=== PATIENT | male | born 1955 | race Two or more races ===

== ENCOUNTER 2017-04-26 07:59 | Day surgery (SDC) | payer OTHER ==
[2017-04-25 13:15] VITALS: BMI 25.8
[~2017-04-26 07:59] MED LIST: BUPIVACAINE HCL/PF 0.5% (5MG/ML) 10 ML VIAL IJ ONE
[2017-04-26] MEDS ORDERED: MIDAZOLAM HCL 2 MG/2 ML SINGLE DOSE VIAL ONE (09:42)
[2017-04-26] MEDS ORDERED: ROCURONIUM BROMIDE 50 MG/5 ML VIAL ONE (09:42)
[2017-04-26] MEDS ORDERED: KETOROLAC TROMETHAMINE 30 MG/1 ML VIAL ONE (09:45)
[2017-04-26] MEDS ORDERED: DEXAMETHASONE SOD PHOSPHATE 4 MG/1 ML VIAL ONE (09:45)
[2017-04-26] MEDS ORDERED: ceFAZolin SODIUM 1 GM VIAL IVPB ONE (10:16)
[2017-04-26] MEDS ORDERED: BUPIVACAINE HCL/PF 0.5% (5MG/ML) 10 ML VIAL ONE ×2 (10:35→10:38)
[2017-04-26] MEDS ORDERED: NEOSTIGMINE METHYLSULFATE 0.5 MG/ML - 10 ML MDV ONE (11:09)
[2017-04-26] MEDS ORDERED: GLYCOPYRROLATE 0.2 MG/1 ML VIAL ONE (11:09)
[2017-04-26] MEDS ORDERED: LIDOCAINE HCL 2% (20ML MULTI-DOSE VIAL) NR ONE (11:36)
[2017-04-26] MEDS ORDERED: BUPIVACAINE HCL/PF 0.5% (5MG/ML) 10 ML VIAL IJ ONE (11:40)
--- NOTE | 2017-04-26 11:55 | HP ---
History & Physical Update - History History: No Change - Physical Physical: No Change - Assessment Assessment: No Change - Plan Plan: No Change
[2017-04-26] MEDS ORDERED: ONDANSETRON 4 MG/2 ML VIAL IVPUSH PRN (12:02)
[2017-04-26] MEDS ORDERED: oxyCODONE HCL 5 MG TABLET PO PRN (12:02)
--- NOTE | 2017-04-26 12:09 | OP ---
Operative Note - Note: Operative Date: 04/26/17 Pre-Operative Diagnosis: Incarcerated ventral hernia. Operation: Repair of incarcearted ventral hernia with mesh. Findings: Large 4 cm. diameter ventral hernia. Implants: Ventolex mesh 6.4 cm. diameter. Post-Operative Diagnosis: Same as Pre-op Surgeon: Josselyn Ravi Anesthesiologist/ESCROW REPRESENTATIVE: Erick Love Anesthesia: General Specimens Removed: Hernial sac. Estimated Blood Loss (mls): 15 Operative Report Dictated: Yes
[2017-04-26] MEDS ORDERED: LACTATED RINGERS SOLUTION 1,000 ML IV SCH (12:15)
[2017-04-26 13:25] VITALS: TEMP 97.7
[2017-04-26 16:52] VITALS: BP 146/89; PULSE 54
--- NOTE | 2017-04-29 12:44 | PATH ---
Surgical Pathology Report Patient Name: DANITA FUNEZ [facility]. Rec. #: [id number] /Age/Gender: 1955 (Age: 62) / M Account: [id number] Location: [facility] Taken: 04/26/2017 Received: 04/26/2017 Reported: 04/29/2017 Physicians: Jamil Ravi M.D. Specimen(s) Received HERNIA SAC Clinical History Incarcerated hernia Final Diagnosis SOFT TISSUE, ABDOMINAL WALL, EXCISION: FIBROMEMBRANOUS TISSUE WITH MESOTHELIAL LINING CONSISTENT WITH HERNIA SAC, WITH AREAS OF FIBROSIS AND CHRONIC INFLAMMATION. BENIGN ADIPOSE TISSUE PRESENT. Electronically Signed Matias Walton M.D. Gross Description Received in formalin labeled "hernia sac," is a 4.0 x 3.4 x 1.4 cm portion of beach-pink fibromembranous tissue with attached fat, consistent with a hernia sac. [employer] Librarian sections are submitted in one cassette. /04/26/2017 saudi04/26/2017
--- NOTE | 2017-04-29 17:21 | OP ---
DATE OF OPERATION: 04/26/2017 PREOPERATIVE DIAGNOSIS: Incarcerated ventral hernia. POSTOPERATIVE DIAGNOSIS: Incarcerated ventral hernia. OPERATIVE PROCEDURE: Repair of incarcerated ventral hernia with mesh. SURGEON: Jamil Ravi MD ANESTHESIA: General anesthesia. ANESTHESIOLOGIST: Erick Love MD OPERATIVE DESCRIPTION: This 62-year-old man had a large hernia in the mid- abdomen measuring about 4 cm in diameter. This was painful. Patient was brought in for repair of the hernia. Consent was obtained. Risks, benefits, and complications had been discussed with the patient earlier. The abdomen was painted and draped. Timeout was called. He was given 1 g of Ancef. Curvilinear incision was made about 2-3 fingerbreadths above the umbilicus. It was deepened all the way down to the anterior rectus sheath through the skin and subcutaneous fat. Superior flaps were then created between the subcutaneous fat and the anterior rectus sheath to find the defect. The flap was then raised over the defect for about 2-3 cm above the defect. This was about 4 cm in diameter which was wide and protrusion of sac and fat through the defect. The sac was then dissected circumferentially and from the undersurface of the abdominal wall. The sac was opened. There was no bowel content within the sac. The sac was then suture ligated with 2-0 Vicryl sutures and divided distal to the ligature. Specimen was sent to Pathology. The peritoneum was then from the undersurface of the abdominal wall. A large 6.4-cm Ventralex mesh was then inserted through the defect. This was anchored with 2-0 Prolene sutures on either side of the midline and 1 above and below the defect. This was passed through the abdominal wall, brought through the defect, through and through the outer leaf f the with the mesh, and then was reintroduced through the abdominal defect and brought out through the abdominal wall. The suture on either side of the midline was tied, to anchor the mesh as an inlay on the undersurface of the abdominal wall. Then, a ribbon of Prolene was cut, about 3 cm from the abdominal wall, and the superior-inferior leaf of the ribbon was incorporated with the 2-0 Prolene suture, thus holding the mesh on the undersurface of the abdominal wall. The defect was thus adequately repaired. Vicryl 3-0 sutures were then obtained to hold the Prolene to the edge of the abdominal wall. The skin and subcutaneous fat were then anchored to the abdominal wall with interrupted 3-0 Vicryl sutures. Hemostasis was satisfactory. Sponge count and instrument count were correct. The defect was adequately repaired. Subcutaneous fat was then approximated with buried, interrupted 3-0 Vicryl sutures. Additionally, 3-0 Vicryl obtained for dermal sutures and skin approximated with continuous 4-0 Monocryl sutures. Estimated blood loss was 15-20 mL. Marcaine 0.5% was injected into the wound and into the abdominal wall. Dermabond was applied across the skin edges. Pressure dressing was applied. Patient tolerated the procedure well, was extubated and sent to the recovery room in satisfactory and stable condition. Cuco COTTO/[id number] MTDD
== END 2017-04-26 16:54 | disposition home or self-care (01) ==
LOC: JASU-SURG 07:59
PROVIDERS: ATTEND Specialist
PROC: 0WUF0JZ Supplement Abdominal Wall with Synthetic Substitute, Open Approach (ICD-10-PCS; principal; 2017-04-26 09:58)
DX: K43.6 Other and unspecified ventral hernia with obstruction, without gangrene (principal)
CPT/HCPCS: 88302-TC; 94760

== ENCOUNTER 2020-11-11 04:34 | Day surgery (SDC) | payer OTHER ==
[2020-11-08 13:31] VITALS: BMI 24.3
[2020-11-11 06:30] LABS: URINE APPEARANCE CLEAR; URINE BILIRUBIN NEGATIVE (NEGATIVE); URINE COLOR YELLOW; URINE GLUCOSE (UA) NEGATIVE (NEGATIVE); URINE KETONE NEGATIVE (NEGATIVE); URINE LEUK ESTERASE NEGATIVE (NEGATIVE); URINE NITRITE NEGATIVE (NEGATIVE); URINE PROTEIN NEGATIVE (NEGATIVE); URINE UROBILINOGEN 0.2 mg/dL (0.2-1.0)
[2020-11-11] MEDS ORDERED: LIDOCAINE 1%/EPI 1:100000 (50 ML MULTI DOSE VIAL) ONE (07:12)
[2020-11-11 07:14] LABS: EPI CELLS 3 /uL (0-25.1); HYALINE CASTS 0 /uL (0-3.1); URINE BACTERIA 33 /uL (0-1359); URINE RBC 2 /uL (0-23.9); URINE WBC 3 /uL (0-25.8)
[2020-11-11] MEDS ORDERED: DEXAMETHASONE SOD PHOSPHATE 4 MG/1 ML VIAL ONE (07:16)
[2020-11-11] MEDS ORDERED: ONDANSETRON 4 MG/2 ML VIAL ONE (07:16)
[2020-11-11] MEDS ORDERED: LIDOCAINE HCL/PF 2% SDV 5ML VIAL ONE (07:16)
[2020-11-11] MEDS ORDERED: MIDAZOLAM HCL 2 MG/2 ML SINGLE DOSE VIAL ONE (07:17)
[2020-11-11] MEDS ORDERED: PROPOFOL 20 ML ONE (07:17)
[2020-11-11 07:21] LABS: INR 0.87 (0.83-1.09); PROTHROMBIN TIME (PATIENT) 10.8 SEC (9.7-13.0)
[2020-11-11] MEDS ORDERED: ONDANSETRON 4 MG/2 ML VIAL IVPUSH PRN (07:44)
[2020-11-11] MEDS ORDERED: oxyCODONE HCL 5 MG TABLET PO PRN (07:44)
[2020-11-11] MEDS ORDERED: LACTATED RINGERS SOLUTION 1,000 ML IV SCH (07:45)
[2020-11-11] MEDS ORDERED: EPHEDRINE SULFATE/0.9% NACL/PF 50 MG/10 ML SYRINGE NR ONE (08:10)
[2020-11-11] MEDS ORDERED: LIDOCAINE 1%/EPI 1:100000 (20 ML MULTI DOSE VIAL) IJ ONE (08:16)
[2020-11-11] MEDS ORDERED: BUPIVACAINE HCL/PF 0.5% (5 MG/ML) 30 ML VIAL IJ ONE (08:30)
[2020-11-11 11:45] VITALS: BP 145/77; PULSE 74; TEMP 98.2
== END 2020-11-11 11:45 | disposition home or self-care (01) ==
LOC: JASU-SURG 04:34
PROVIDERS: ATTEND Orthopaedic Surgery
PROC: 0SBD4ZZ Excision of Left Knee Joint, Percutaneous Endoscopic Approach (ICD-10-PCS; principal; 2020-11-11 08:00)
DX: M23.92 Unspecified internal derangement of left knee (principal)
CPT/HCPCS: 36415; 81003; 85610; 85730; 88304-TC; 94760